=== PATIENT | female | born 1985 | race Caucasian/White ===

== ENCOUNTER 2019-02-09 05:55 | Inpatient (IN) | payer MEDICAID ==
[~2019-02-09] VITALS: Ht 152.4 cm; Wt 80.3 kg
[2019-02-09] MEDS ORDERED: LACTATED RINGER'S 1,000 ML IV SCH ×2 (06:17→12:40)
[2019-02-09] MEDS ORDERED: OXYTOCIN 30 UNITS/LR 500 ML IV PRN ×2 (06:30→13:00)
[2019-02-09] MEDS ORDERED: OXYTOCIN 30 UNITS/LR 500 ML IV SCH ×2 (06:30→12:40)
[2019-02-09] MEDS ORDERED: CEFAZOLIN 2 GM/50 ML (PMX) 50 ML IVPB SCH (06:30)
[2019-02-09] MEDS ORDERED: METHYLERGONOVINE 0.2 MG INJ IM PRN ×2 (06:30→13:00)
[2019-02-09] MEDS ORDERED: MISOPROSTOL 200 MCG TAB PR PRN ×2 (06:30→13:00)
[2019-02-09] MEDS ORDERED: CARBOPROST 250 MCG INJ IM PRN ×2 (06:30→13:00)
[2019-02-09] MEDS ORDERED: PHENYLephrine (100 MCG/ML) 10ML SYG ONE (07:16)
[2019-02-09] MEDS ORDERED: morphine SULFATE/PF (10 MG/10 ML) INJ ONE (07:17)
[2019-02-09] MEDS ORDERED: OXYTOCIN 10 UNIT INJ ONE (07:17)
[2019-02-09] MEDS ORDERED: CITRIC ACID/NA CITRATE 30 ML CUP PO ONE (07:30)
[2019-02-09] MEDS ORDERED: ONDANSETRON 4 MG INJ IV ONE (07:30)
[2019-02-09] MEDS ORDERED: METOCLOPRAMIDE 10 MG INJ ONE (08:15)
[2019-02-09] MEDS ORDERED: DEXAMETHASONE 4 MG/ML 1 ML INJ ONE (08:15)
[2019-02-09] MEDS ORDERED: KETOROLAC 30 MG INJ ONE (08:16)
[2019-02-09] MEDS ORDERED: HYDROmorphONE 0.5 MG/0.5 ML SYG IV PRN ×2 (08:30)
[2019-02-09] MEDS ORDERED: KETOROLAC 30 MG INJ IV PRN (08:30)
[2019-02-09] MEDS ORDERED: DIPHENHYDRAMINE 50 MG INJ IV PRN (08:30)
[2019-02-09] MEDS ORDERED: NALBUPHINE HCL (10 MG/1 ML) INJ IV PRN (08:30)
[2019-02-09] MEDS ORDERED: morphine 2 MG INJ IV PRN ×2 (08:30)
[2019-02-09] MEDS ORDERED: HYDROCODONE/APAP (5/325) TAB PO PRN (08:30)
[2019-02-09] MEDS ORDERED: ACETAMINOPHEN 500 MG TAB PO PRN (08:30)
[2019-02-09] MEDS ORDERED: ONDANSETRON 4 MG INJ IV PRN (08:30)
[2019-02-09] MEDS ORDERED: NALOXONE (0.4 MG/ML) INJ IV PRN (08:30)
[2019-02-09 12:40] VITALS: BP 100/58; PULSE 61; RESP 17
[2019-02-09 12:55] VITALS: BP 106/64; PULSE 56; RESP 18
[2019-02-09] MEDS ORDERED: NACL 0.9% 3 ML SYG IV SCH (13:00)
[2019-02-09] MEDS ORDERED: NA PHOSPHATE/BIPHOS 133 ML ENEMA PR PRN (13:00)
[2019-02-09] MEDS: IBUPROFEN 800 MG TAB PO SCH ×2 (13:12→22:00)
[2019-02-09 13:30] VITALS: BP 100/62; PULSE 56; RESP 18
[2019-02-09 14:30] VITALS: BP 101/61; PULSE 60; RESP 18
[2019-02-09 16:00] VITALS: BP 101/62; PULSE 65; RESP 19
[2019-02-09 20:00] VITALS: BP 100/60; PULSE 61; RESP 17
[2019-02-09] MEDS ORDERED: LACTATED RINGER'S 1,000 ML IV ONE (23:30)
[2019-02-10] VITALS: BP 97/51; PULSE 77; RESP 18
[2019-02-10 04:00] VITALS: BP 92/51; PULSE 74; RESP 18
[2019-02-10] MEDS: IBUPROFEN 800 MG TAB PO SCH ×3 (06:00→22:01)
[2019-02-10 08:00] VITALS: BP 106/55; PULSE 72; RESP 18
[2019-02-10] MEDS: LANOLIN HPA 1 PKT TOP PRN ×2 (08:14→20:40)
[2019-02-10 16:00] VITALS: BP 101/77; PULSE 80; RESP 18
[2019-02-10 19:45] VITALS: BP 92/59; PULSE 75; RESP 18
[2019-02-10] MEDS: HYDROCODONE/APAP (5/325) TAB PO PRN (20:40)
[2019-02-11 03:45] VITALS: BP 101/56; PULSE 58; RESP 18
[2019-02-11] MEDS: IBUPROFEN 800 MG TAB PO SCH ×3 (05:42→22:48)
[2019-02-11 08:00] VITALS: BP 100/63; PULSE 69; RESP 18
[2019-02-11] MEDS: BISACODYL 10 MG SUPP PR SCH ×2 (16:33→21:00)
[2019-02-11 16:52] VITALS: BP 113/66; PULSE 89; RESP 18
[2019-02-11 20:00] VITALS: BP 102/55; PULSE 89; RESP 16
[2019-02-12] MEDS: HYDROCODONE/APAP (5/325) TAB PO PRN (01:13)
[2019-02-12 04:00] VITALS: BP 98/64; PULSE 68; RESP 18
[2019-02-12] MEDS: IBUPROFEN 800 MG TAB PO SCH (05:31)
[2019-02-12 08:00] VITALS: BP 94/58; PULSE 62; RESP 16
[2019-02-12] MEDS ORDERED: DIPHTH/TET/ACEL PERTUSS (ADULT) 0.5 ML VIAL IM* ONE (09:00)
[2019-02-12] MEDS ORDERED: MEASLES,MUMPS,RUBELLA VACCINE INJ SC* ONE (09:00)
[2019-02-12] MEDS: BISACODYL 10 MG SUPP PR SCH (09:00)
== END 2019-02-12 12:33 | disposition home or self-care (01) | DRG 788 ==
LOC: L-D 05:55 → PP1 12:41
PROVIDERS: ADMIT Obstetrics & Gynecology; ATTEND Obstetrics & Gynecology
PROC: 10D00Z1 Extraction of Products of Conception, Low, Open Approach (ICD-10-PCS; principal; 2019-02-09 08:00)
DX: O34.211 Maternal care for low transverse scar from previous cesarean delivery (principal); Z3A.39 39 weeks gestation of pregnancy; Z37.0 Single live birth
CPT/HCPCS: 80307; 85025; 85610; 85730; 86592; 86850; 86900; 86901; 87340; 99464; J0690; J1100; J1885; J2210; J2274; J2370; J2405; J2590; J2765; J7120